=== PATIENT | female | born 1955 | race Caucasian/White ===

== ENCOUNTER 2016-06-11 09:32 | Outpatient (CLI) | payer MEDICARE ==
[2016-06-11 10:05] LABS: #Basophils 0.1 thou/uL (0.0-0.2); #Eosinphils 0.1 thou/uL (0.0-0.7); #Lymphocytes 2.3 thou/uL (1.20-3.40); #Monocytes 0.6 thou/uL (0.11-0.59); #Neutrophils 4.6 thou/uL (1.40-6.50); %Basophils 1.2 % (0.0-1.0); %Eosinophils 1.8 % (0.0-10.0); %Lymphocytes 30.1 % (21.0-51.0); %Monocytes 7.2 % (0.0-10.0); %Neutrophils 59.8 % (42.0-75.0); Hemoglobin 13.8 g/dL (12.0-16.0); Mean Corpuscular HGB CONC 33.9 g/dL (32.0-36.0); Mean Corpuscular Hemoglobin 32.4 pg (27.0-31.0); Mean Corpuscular Volume 95.7 fl (81.0-99.0); Mean Platelet Volume 7.7 fL (7.4-10.4); Platelet Count 329 thou/uL (130-400); RBC Distribution Width 12.5 % (11.5-14.5); Red Blood Cell (RBC) Count 4.25 mill/uL (4.20-5.40); White Blood Cell (WBC) Count 7.7 thou/uL (4.8-10.8)
[2016-06-11 10:16] LABS: Hemoglobin A1c 6.4 % (4.0-6.0)
[2016-06-11 10:21] LABS: ALT (SGPT) 35 U/L (0-55); AST (SGOT) 30 U/L (5-34); Albumin 4.3 g/dL (3.4-4.8); Alkaline Phosphatase 70 U/L (40-150); Anion Gap 17 mmol/L (10-20); BUN (Urea Nitrogen) 18 mg/dL (9.8-20.1); Bilirubin, Total 0.6 mg/dL (0.2-1.2); Calc. Creatinine Clearance 0 mL/min (70-130); Carbon Dioxide 25 mmol/L (23-31); Chloride 102 mmol/L (98-107); Cholesterol 145 mg/dL (< 200 Desired); Estimated GFR-MDRD 50; Globulin 3.2 g/dL (2.4-3.5); Glucose 177 mg/dL (80-115); HDL Cholesterol 48 mg/dL (>60 Neg Risk); LDL Cholesterol, Calculated 78 mg/dL; Potassium 4.2 mmol/L (3.5-5.1); Protein, Total 7.5 g/dL (5.8-8.1); Sodium 140 mmol/L (136-145); Triglycerides 94 mg/dL (Less than 150)
[2016-06-11 10:46] LABS: Free T4 (Free Thyroxine) 1.06 ng/dL (0.70-1.48); Thyroid Stimulating Hormone 1.7361 uIU/mL (0.35-4.94); Vitamin D, 25 Hydroxy 19.4 ng/mL (> 30.0)
[2016-06-11 17:27] LABS: Creatinine, Urine 140.89 mg/dL (47-110); Microalbumin Urine 1.1 mg/dL (0.5-50.0); Microalbumin/Creat Ratio 7.8 mg/g (Less than 30)
== END 2016-06-11 09:33 | disposition home or self-care (01) ==
LOC: MADLABBHPM 09:32
PROVIDERS: ATTEND Family Medicine
DX: E78.5 Hyperlipidemia, unspecified (principal); E11.40 Type 2 diabetes mellitus with diabetic neuropathy, unspecified; I10 Essential (primary) hypertension
CPT/HCPCS: 36415; 80053; 80061; 82043; 82306; 82570; 83036; 84439; 84443; 85025

== ENCOUNTER 2016-09-17 08:47 | Outpatient (CLI) | payer MEDICARE ==
[2016-09-17 09:11] LABS: #Basophils 0.1 thou/uL (0.0-0.2); #Eosinphils 0.2 thou/uL (0.0-0.7); #Lymphocytes 2.3 thou/uL (1.20-3.40); #Monocytes 0.5 thou/uL (0.11-0.59); #Neutrophils 5.1 thou/uL (1.40-6.50); %Basophils 1.1 % (0.0-1.0); %Eosinophils 2.2 % (0.0-10.0); %Lymphocytes 28.6 % (21.0-51.0); %Monocytes 6.2 % (0.0-10.0); Hemoglobin 13.7 g/dL (12.0-16.0); Mean Corpuscular HGB CONC 34.3 g/dL (32.0-36.0); Mean Corpuscular Volume 96.1 fl (81.0-99.0); Mean Platelet Volume 7.3 fL (7.4-10.4); Platelet Count 318 thou/uL (130-400); RBC Distribution Width 11.9 % (11.5-14.5); Red Blood Cell (RBC) Count 4.15 mill/uL (4.20-5.40); White Blood Cell (WBC) Count 8.2 thou/uL (4.8-10.8)
[2016-09-17 09:58] LABS: Hemoglobin A1c 6.5 % (4.0-6.0)
[2016-09-17 10:03] LABS: ALT (SGPT) 33 U/L (0-55); AST (SGOT) 27 U/L (5-34); Alkaline Phosphatase 80 U/L (40-150); Anion Gap 14 mmol/L (10-20); BUN (Urea Nitrogen) 19 mg/dL (9.8-20.1); Bilirubin, Total 0.5 mg/dL (0.2-1.2); Calc. Creatinine Clearance 0 mL/min (70-130); Calcium 9.7 mg/dL (7.8-10.44); Carbon Dioxide 26 mmol/L (23-31); Cardiac Risk 3.2 (Less than 4.5); Chloride 101 mmol/L (98-107); Cholesterol 141 mg/dL (< 200 Desired); Estimated GFR-MDRD 50; Globulin 3.2 g/dL (2.4-3.5); Glucose 197 mg/dL (80-115); HDL Cholesterol 44 mg/dL (>60 Neg Risk); LDL Cholesterol, Calculated 71 mg/dL; Potassium 4.1 mmol/L (3.5-5.1); Protein, Total 7.2 g/dL (5.8-8.1); Sodium 137 mmol/L (136-145); Triglycerides 130 mg/dL (Less than 150)
[2016-09-17 11:32] LABS: Free T4 (Free Thyroxine) 1.04 ng/dL (0.70-1.48); Thyroid Stimulating Hormone 1.108 uIU/mL (0.35-4.94); Vitamin D, 25 Hydroxy 18.6 ng/mL (> 30.0)
[2016-09-17 17:25] LABS: Creatinine, Urine 93.45 mg/dL (47-110); Microalbumin Urine Less than 1.0 mg/dL (0.5-50.0); Microalbumin/Creat Ratio 10.7 mg/g (Less than 30)
== END 2016-09-17 08:48 | disposition home or self-care (01) ==
LOC: MADLABBHPM 08:47
PROVIDERS: ATTEND Family Medicine
DX: E11.40 Type 2 diabetes mellitus with diabetic neuropathy, unspecified (principal); E78.5 Hyperlipidemia, unspecified; I10 Essential (primary) hypertension
CPT/HCPCS: 36415; 80053; 80061; 82043; 82306; 83036; 84439; 84443; 85025

== ENCOUNTER 2016-09-19 10:01 | Outpatient (CLI) | payer MEDICARE ==
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
== END 2016-09-19 10:02 | disposition home or self-care (01) ==
LOC: MADRAD 10:01
PROVIDERS: ATTEND Family Medicine
DX: M54.5 Low back pain (principal); M54.2 Cervicalgia; M51.36 Other intervertebral disc degeneration, lumbar region
CPT/HCPCS: 72040; 72100

== ENCOUNTER 2016-12-17 12:17 | Outpatient (CLI) | payer MEDICARE ==
[2016-12-17 12:57] LABS: Hemoglobin A1c 6.7 % (4.0-6.0)
[2016-12-17 13:15] LABS: ALT (SGPT) 38 U/L (8-55); AST (SGOT) 35 U/L (5-34); Albumin 4.1 g/dL (3.4-4.8); Alkaline Phosphatase 79 U/L (40-150); Anion Gap 14 mmol/L (10-20); BUN (Urea Nitrogen) 22 mg/dL (9.8-20.1); Bilirubin, Total 0.6 mg/dL (0.2-1.2); Calc. Creatinine Clearance 0 mL/min (70-130); Calcium 9.4 mg/dL (7.8-10.44); Carbon Dioxide 27 mmol/L (23-31); Cardiac Risk 3.6 (Less than 4.5); Chloride 102 mmol/L (98-107); Cholesterol 146 mg/dl (< 200 Desired); Estimated GFR-MDRD 56; Globulin 3.2 g/dL (2.4-3.5); Glucose 161 mg/dL (80-115); HDL Cholesterol 41 mg/dL (>60 Neg Risk); LDL Cholesterol, Calculated 86 mg/dL; Protein, Total 7.3 g/dL (6.0-8.3); Sodium 138 mmol/L (136-145); Triglycerides 96 mg/dL (Less than 150)
== END 2016-12-17 12:18 | disposition home or self-care (01) ==
LOC: MADLABBHPM 12:17
PROVIDERS: ATTEND Family Medicine
DX: E11.40 Type 2 diabetes mellitus with diabetic neuropathy, unspecified (principal); E11.22 Type 2 diabetes mellitus with diabetic chronic kidney disease; N18.9 Chronic kidney disease, unspecified; E78.5 Hyperlipidemia, unspecified; E55.9 Vitamin D deficiency, unspecified
CPT/HCPCS: 36415; 80053; 80061; 82306; 83036

== ENCOUNTER 2018-01-05 07:51 | Outpatient (CLI) | payer MEDICARE ==
--- NOTE | 2018-01-05 12:19 | ULT ---
BILATERAL RENAL ULTRASOUND: Date: 01/05/18 HISTORY: Chronic renal disease, diabetes. FINDINGS: The right kidney measures 11.5 cm in length and the left kidney measures 9.8 cm in length. No focal m ass or hydronephrosis is seen. Cortical echogenicity and thickness is normal. Urinary bladder is unre markable. IMPRESSION: No evidence of obstructive uropathy. POS: [facility]
== END 2018-01-05 07:52 | disposition home or self-care (01) ==
LOC: MADULT 07:51
PROVIDERS: ATTEND Internal Medicine Nephrology
DX: N18.3 Chronic kidney disease, stage 3 (moderate) (principal)
CPT/HCPCS: 76770

== ENCOUNTER 2018-12-11 13:40 | Outpatient (CLI) | payer MEDICARE ==
--- NOTE | 2018-12-11 14:02 | RAD ---
XR Knee Rt 4 View STANDARD History: Acute knee pain in the right knee FINDINGS: No acute fracture or dislocation is seen. Mild degenerative changes are present.
== END 2018-12-11 13:41 | disposition home or self-care (01) ==
LOC: MADLABBHPM 13:40
PROVIDERS: ATTEND Family Medicine
DX: M25.561 Pain in right knee (principal); M10.9 Gout, unspecified; M17.11 Unilateral primary osteoarthritis, right knee
CPT/HCPCS: 36415; 84550

== ENCOUNTER 2020-03-23 09:43 | Outpatient (CLI) | payer MEDICARE ==
--- NOTE | 2020-03-23 10:33 | RAD ---
Cervical spine 3 views: 03/23/2020 COMPARISON: 10/08/2019 HISTORY: Cervical disc disorder, myelopathy, prior surgery FINDINGS: Anterior discectomy and fusion hardware is present at the C5-6/C6-7 level. There is mild anterolisthesis at C3-4 measuring 3-4 mm. No evidence for hardware failure. No preverte bral soft tissue swelling is seen. There is disc space narrowing with anterior osteophyte formation at C4-5. There is atherosclerotic calcification of the aortic arch. The C1-2 articulation appears normal on th e open-mouth odontoid view. IMPRESSION: Postoperative and degenerative changes of the cervical spine as detailed above.
== END 2020-03-23 09:44 | disposition home or self-care (01) ==
LOC: MADLAB 09:43
PROVIDERS: ATTEND Family Medicine
DX: M50.00 Cervical disc disorder with myelopathy, unspecified cervical region (principal); M47.16 Other spondylosis with myelopathy, lumbar region; Z98.890 Other specified postprocedural states
CPT/HCPCS: 72040

== ENCOUNTER 2020-05-21 18:42 | Emergency (ER) | payer MEDICARE ==
--- NOTE | 2020-05-21 19:26 | RAD ---
LEFT ANKLE THREE VIEWS: History: Injury Comparison: None FINDINGS: There is mild narrowing of the medial ankle mortise. Mild medial and lateral degenerative changes. Mo derate plantar calcaneal spur. No acute displaced fracture or malalignment. Fifth metatarsal proximal tuberosity is intact. IMPRESSION: No acute osseous abnormality. POS: HOME
[2020-05-21] MEDS ORDERED: Ibuprofen 400 MG TAB ONE (19:30)
== END 2020-05-21 19:50 | disposition home or self-care (01) ==
LOC: MADERS 18:42
DX: S93.402A Sprain of unspecified ligament of left ankle, initial encounter (principal); E11.9 Type 2 diabetes mellitus without complications; K21.9 Gastro-esophageal reflux disease without esophagitis; E78.5 Hyperlipidemia, unspecified; E78.00 Pure hypercholesterolemia, unspecified; I10 Essential (primary) hypertension; M10.9 Gout, unspecified; Z79.899 Other long term (current) drug therapy; Z79.82 Long term (current) use of aspirin; Z79.891 Long term (current) use of opiate analgesic; X50.9XXA Other and unspecified overexertion or strenuous movements or postures, initial encounter

== ENCOUNTER 2020-08-21 10:42 | Outpatient (CLI) | payer MEDICARE ==
[2020-08-21 11:25] LABS: ALT (SGPT) 43 U/L (8-55); AST (SGOT) 34 U/L (5-34); Albumin 4.2 g/dL (3.4-4.8); Alkaline Phosphatase 130 U/L (40-110); Anion Gap 13 mmol/L (10-20); BUN (Urea Nitrogen) 26 mg/dL (9.8-20.1); Bilirubin, Total 0.6 mg/dL (0.2-1.2); Calc. Creatinine Clearance 0 mL/min (70-130); Calcium 9.7 mg/dL (7.8-10.44); Carbon Dioxide 29 mmol/L (23-31); Cardiac Risk 3.3 (Less than 4.5); Chloride 102 mmol/L (98-107); Cholesterol 142 mg/dl (< 200 Desired); Globulin 3.3 g/dL (2.4-3.5); Glucose 204 mg/dL (80-115); HDL Cholesterol 43 mg/dL (>60 Neg Risk); LDL Cholesterol, Calculated 74 mg/dL; Protein, Total 7.5 g/dL (5.8-8.1); Sodium 140 mmol/L (136-145); Triglycerides 126 mg/dL (Less than 150); Uric Acid 4.6 mg/dL (2.6-6.0)
[2020-08-21 17:17] LABS: Creatinine, Urine 58.54 mg/dL (47-110); Microalbumin Urine 1.1 mg/dL (0.5-50.0); Microalbumin/Creat Ratio 18.8 mg/g (Less than 30)
== END 2020-08-21 10:43 | disposition home or self-care (01) ==
LOC: MADLAB 10:42
PROVIDERS: ATTEND Family Medicine
DX: E11.40 Type 2 diabetes mellitus with diabetic neuropathy, unspecified (principal); M10.9 Gout, unspecified; E55.9 Vitamin D deficiency, unspecified; E78.2 Mixed hyperlipidemia
CPT/HCPCS: 36415; 80053; 80061; 82043; 82306; 83036; 84550

== ENCOUNTER 2021-05-17 10:32 | Outpatient (CLI) | payer MEDICARE | END 2021-05-17 10:33 | disposition home or self-care (01) | LOC: MADRAD 10:32 | PROVIDERS: ATTEND Family Medicine | DX: M25.551 Pain in right hip (principal); M67.853 Other specified disorders of tendon, right hip ==

== ENCOUNTER 2021-11-23 10:45 | Outpatient (CLI) | payer MEDICARE | END 2021-11-23 10:46 | disposition home or self-care (01) | LOC: MADLAB 10:45 | PROVIDERS: ATTEND Neurological Surgery | DX: M47.22 Other spondylosis with radiculopathy, cervical region (principal); Z98.1 Arthrodesis status | CPT/HCPCS: 72050 ==

== ENCOUNTER 2022-08-14 10:41 | Outpatient (CLI) | payer OTHER | END 2022-08-14 10:42 | disposition home or self-care (01) | LOC: MADLAB 10:41 | PROVIDERS: ATTEND Internal Medicine | DX: M17.12 Unilateral primary osteoarthritis, left knee (principal) ==

== ENCOUNTER 2022-12-25 11:56 | Outpatient (CLI) | payer OTHER | END 2022-12-25 11:57 | disposition home or self-care (01) | LOC: MADRAD 11:56 | PROVIDERS: ATTEND Anesthesiology Pain Medicine | DX: M16.12 Unilateral primary osteoarthritis, left hip (principal) ==

== ENCOUNTER 2023-06-03 11:04 | Outpatient (CLI) | payer OTHER | END 2023-06-03 11:05 | disposition home or self-care (01) | LOC: MADRAD 11:04 | PROVIDERS: ATTEND Internal Medicine | DX: R05.9 Cough, unspecified (principal) | CPT/HCPCS: 71046 ==

== ENCOUNTER 2023-08-13 08:22 | Outpatient (CLI) | payer OTHER | END 2023-08-13 08:23 | disposition home or self-care (01) | LOC: MADRAD 08:22 | PROVIDERS: ATTEND Physician Assistant Surgical | DX: M48.062 Spinal stenosis, lumbar region with neurogenic claudication (principal); M47.816 Spondylosis without myelopathy or radiculopathy, lumbar region | CPT/HCPCS: 72100 ==

== ENCOUNTER 2023-09-30 18:10 | Emergency (ER) | payer OTHER ==
[2023-09-30] MEDS ORDERED: Boostrix 0.5 ML (Tdap) VIAL (>/=7 yrs of age) ONE (18:44)
[2023-09-30] MEDS ORDERED: Cephalexin 500 MG CAP ONE (18:44)
== END 2023-09-30 18:53 | disposition home or self-care (01) ==
LOC: MADERS 18:10
DX: S61.002A Unspecified open wound of left thumb without damage to nail, initial encounter (principal); E11.9 Type 2 diabetes mellitus without complications; K21.9 Gastro-esophageal reflux disease without esophagitis; I10 Essential (primary) hypertension; E78.00 Pure hypercholesterolemia, unspecified; M10.9 Gout, unspecified; W26.0XXA Contact with knife, initial encounter; Z23 Encounter for immunization; Z79.82 Long term (current) use of aspirin; Z79.899 Other long term (current) drug therapy
CPT/HCPCS: 90471; 90715

== ENCOUNTER 2024-03-04 13:59 | Emergency (ER) | payer OTHER ==
[2024-03-04] MEDS ORDERED: Ondansetron PF 4 MG/2 ML Vial ONE (14:55)
[2024-03-04] MEDS ORDERED: Sodium Chloride 0.9% 1,000 ML ONE (14:55)
[2024-03-04] MEDS ORDERED: Morphine 4 MG/ML VIAL ONE (14:55)
[2024-03-04 15:22] LABS: ALT (SGPT) 14 U/L (8-55); AST (SGOT) 15 U/L (5-34); Albumin 3.8 g/dL (3.4-4.8); Alkaline Phosphatase 87 U/L (40-110); Anion Gap 14 mmol/L (10-20); BUN (Urea Nitrogen) 20 mg/dL (9.8-20.1); Bilirubin, Total 0.7 mg/dL (0.2-1.2); Calc. Creatinine Clearance 0 mL/min (70-130); Calcium 9.4 mg/dL (7.8-10.44); Carbon Dioxide 26 mmol/L (23-31); Chloride 104 mmol/L (98-107); Estimated GFR 67; Glucose 95 mg/dL (80-115); Hematocrit 52.9 % (36.0-47.0); Hemoglobin 15.6 g/dL (12.0-16.0); Mean Corpuscular HGB CONC 29.5 g/dL (32.0-36.0); Mean Corpuscular Hemoglobin 27.2 pg (27.0-31.0); Mean Corpuscular Volume 91.9 fl (78.0-98.0); Mean Platelet Volume 7.4 fL (7.4-10.4); Platelet Count 471 10x3/uL (130-400); Potassium 4.1 mmol/L (3.5-5.1); Protein, Total 6.8 g/dL (5.8-8.1); RBC Distribution Width 17.1 % (11.5-14.5); Red Blood Cell (RBC) Count 5.76 mill/uL (4.20-5.40); Sodium 140 mmol/L (136-145); White Blood Cell (WBC) Count 11.6 10x3/uL (4.8-10.8)
[2024-03-04 15:23] LABS: Eosinophils 3 % (0-10); Lymphocytes 8 % (21-51); MDiff Complete? YES; Manual Diff?? YES; Monocytes 2 % (0-10); Neutrophil 73 % (42-75); Platelet Adequacy Comment Appears Adequate; RBC Morph Comment Within Normal Limits; Reactive Lymphocytes 14 % (0-10)
[2024-03-04 16:06] LABS: Bilirubin Negative (Negative); Blood, Urine Negative (Negative); Glucose, Urine (Dipstick) 500 mg/dL (Negative); Ketone, Urine Negative (Negative); Leukocyte Negative (Negative); Nitrite Negative (Negative); Protein, Urine (Dipstick) Negative (Neg-Trace); Urobilinogen 0.2 mg/dL (Less than 2); pH, Urine 6.5 (5.0-9.0)
[2024-03-04 16:07] LABS: Clarity Clear (Clear)
[2024-03-04 16:13] LABS: Bacteria/HPF Rare-Few HPF (None Seen); CAUTI Indications for Culture Dysuria,urgency,freq; RBC/HPF 0-3 HPF (0-3); Squamous Epithelial 0-3 HPF (0-3); Urine Culture Reflex No No; WBC/HPF None Seen HPF (0-3)
[2024-03-04] MEDS ORDERED: Ciprofloxacin 500 MG TAB ONE (16:47)
[2024-03-04] MEDS ORDERED: metroNIDAZOLE 250 MG TAB ONE (16:47)
[2024-03-04] MEDS ORDERED: Iopamidol 370 76% 100 ML VIAL ONE (17:17)
== END 2024-03-04 16:54 | disposition home or self-care (01) ==
LOC: MADERS 13:59
DX: K57.92 Diverticulitis of intestine, part unspecified, without perforation or abscess without bleeding (principal); E11.9 Type 2 diabetes mellitus without complications; K21.9 Gastro-esophageal reflux disease without esophagitis; E78.5 Hyperlipidemia, unspecified; I10 Essential (primary) hypertension; M10.9 Gout, unspecified; Z79.82 Long term (current) use of aspirin; Z79.899 Other long term (current) drug therapy
CPT/HCPCS: 74177; 80053; 81001; 85025; 96374; 96375; J2272; J2405; J7030; Q9967